=== PATIENT | female | born 1985 | race African-American/Black ===

== ENCOUNTER 2017-05-02 19:48 | Emergency (ER) | payer SELFPAY ==
[2017-05-02] MEDS ORDERED: Dexamethasone 4 mg/ml Vial ONE (20:13)
[2017-05-02] MEDS ORDERED: Bicillin LA 1.2 MILLION UNITS/2 ML SYRINGE ONE (20:13)
== END 2017-05-02 20:34 | disposition home or self-care (01) ==
LOC: NAV ERS 19:48
DX: J02.9 Acute pharyngitis, unspecified (principal); H92.09 Otalgia, unspecified ear; F32.9 Major depressive disorder, single episode, unspecified
CPT/HCPCS: 96372; J0561; J1100

== ENCOUNTER 2017-07-18 15:43 | Emergency (ER) | payer BC, SELFPAY ==
[~2017-07-18 15:43] MED LIST: Iopamidol 370 76% 100 ML VIAL ONE
[2017-07-18] MEDS ORDERED: Famotidine/PF 20 mg/2ml Vial ONE (16:25)
[2017-07-18] MEDS ORDERED: Sodium Chloride 0.9% 1,000 ML ONE (16:27)
[2017-07-18 16:39] LABS: ALT (SGPT) 30 U/L (8-55); AST (SGOT) 25 U/L (5-34); Albumin 4.2 g/dL (3.5-5.0); Alkaline Phosphatase 99 U/L (40-150); Anion Gap 14 mmol/L (10-20); BUN (Urea Nitrogen) 10 mg/dL (7.0-18.7); Bilirubin, Total 0.8 mg/dL (0.2-1.2); Calc. Creatinine Clearance 0 mL/min (70-130); Carbon Dioxide 24 mmol/L (22-29); Chloride 105 mmol/L (98-107); Estimated GFR-MDRD Greater than 90; Globulin 3.6 g/dL (2.4-3.5); Glucose 91 mg/dL (70-105); Potassium 3.1 mmol/L (3.5-5.1); Protein, Total 7.8 g/dL (6.0-8.3); Sodium 140 mmol/L (136-145)
[2017-07-18 16:42] LABS: CKMB 0.9 ng/mL (0-6.6); Troponin I Less than 0.010 ng/mL (< 0.028)
[2017-07-18 16:58] LABS: #Basophils 0.1 thou/uL (0.0-0.2); #Eosinphils 0.1 thou/uL (0.0-0.7); #Lymphocytes 1.6 thou/uL (1.20-3.40); #Monocytes 0.4 thou/uL (0.11-0.59); #Neutrophils 3.1 thou/uL (1.40-6.50); %Basophils 1.8 % (0.0-1.0); %Eosinophils 1.2 % (0.0-10.0); %Lymphocytes 30.5 % (21.0-51.0); %Monocytes 7.1 % (0.0-10.0); %Neutrophils 59.4 % (42.0-75.0); Hemoglobin 13.7 g/dL (12.0-16.0); Mean Corpuscular HGB CONC 32.4 g/dL (32.0-36.0); Mean Corpuscular Hemoglobin 28.8 pg (27.0-31.0); Mean Corpuscular Volume 88.9 fl (81.0-99.0); Mean Platelet Volume 13.9 fL (7.4-10.4); Platelet Count 125 thou/uL (130-400); RBC Distribution Width 11.1 % (11.5-14.5); Red Blood Cell (RBC) Count 4.77 mill/uL (4.20-5.40); White Blood Cell (WBC) Count 5.2 thou/uL (4.8-10.8)
[2017-07-18] MEDS ORDERED: Mag-Al Plus 1200 MG/1200 MG/120 MG/30 ML UDCUP ONE (17:25)
[2017-07-18] MEDS ORDERED: Lidocaine Viscous Sol 2% 15 ml UD Cup ONE ×2 (17:25→17:27)
[2017-07-18] MEDS ORDERED: Potassium Chloride 20 MEQ TAB ONE (18:39)
[2017-07-18] MEDS ORDERED: Ketorolac Tromethamine 30 MG/ML VIAL ONE (18:39)
--- NOTE | 2017-07-18 18:43 | RAD ---
RADIOGRAPH CHEST 2 VIEWS: Date: 07/18/17 Time: 5:30 p.m. HISTORY: 31-year-old female with acute chest pain. COMPARISON: None. FINDINGS: There is increased attenuation in the retrocardiac portion of the left lower lobe. No evidence of ple ural effusion. Mild cardiomegaly. Bilateral Redmond rods throughout the thoracic spine and upper l umbar spine. Tortuosity of thoracic aorta. No pulmonary edema or pneumothorax. IMPRESSION: 1. Left lower lobe opacity which could be atelectasis or pneumonia. 2. Redmond rods. 3. Mild cardiomegaly without congestive heart failure. ELIZABETH [] POS: [facility]
[2017-07-18 19:28] LABS: PLT Morphology Comment Appears Decreased
--- NOTE | 2017-07-18 22:10 | CT ---
EXAM: CT ANGIOGRAM OF THE CHEST 07/18/17 HISTORY: Chest pain. Currently elevated D-dimer. EKG change. COMPARISON: None. TECHNIQUE: CT angiogram of the chest is performed in the axial plane. Sagittal and coronal as well as oblique th ree dimensional reformatted images are submitted for interpretation. FINDINGS: Limited evaluation of the vascular and mediastinal structures due to the presence of Redmond rods. No mediastinal mass, lymphadenopathy, or hematoma. Heart size is normal. No pericardial effusion. Th e visualized aorta has an overall normal caliber. No periaortic fat stranding. The visualized upper solid organs are grossly unremarkable. Trachea and central bronchi are patent. No consolidation or masses. No pneumothorax or osseous abnorm alities. Adequate contrast opacification of the pulmonary arterial systems to the level of the lobar arteries. Evaluation of the segmental and subsegmental arteries is limited by timing of bolus. No filling defe ct to suggest thromboembolism. Limited evaluation of the spine due to Redmond rods. IMPRESSION: 1. Limited evaluation of the pulmonary arterial system to the level of the lobar artery due to t iming of bolus. No filling defect to suggest thromboembolism. Limited evaluation of the segmental and subsegmental arteries. 1. POS: [facility]
== END 2017-07-18 19:25 | disposition home or self-care (01) ==
LOC: NAV ERS 15:43
DX: R07.2 Precordial pain (principal); R10.816 Epigastric abdominal tenderness; M41.9 Scoliosis, unspecified; F32.9 Major depressive disorder, single episode, unspecified
CPT/HCPCS: 36415; 71046; 71275; 80053; 82553; 83880; 84484; 84702; 85025; 85379; 93005; 96361; 96374; 96375; J1885; J7050; S0028